=== PATIENT | female | born 1990 | race Caucasian/White ===

== ENCOUNTER 2018-01-13 09:48 | Emergency (ER) | payer OTHER ==
[2018-01-13 10:34] LABS: AMORPHOUS SEDIMENT SMALL (NEGATIVE); APPEARANCE, URINE HAZY (CLEAR); BACTERIA, URINE AUTO NEGATIVE (NEGATIVE); BILIRUBIN, URINE AUTO NEGATIVE (NEGATIVE); BLOOD, URINE BLOOD NEGATIVE (NEGATIVE); COLOR, URINE YELLOW (YELLOW); GLUCOSE, URINE (UA) AUTO NEGATIVE (NEGATIVE); KETONE, URINE AUTO NEGATIVE (NEGATIVE); LEUKOCYTE ESTERASE, URINE AUTO NEGATIVE (NEGATIVE); NITRITE, URINE AUTO NEGATIVE (NEGATIVE); PROTEIN, URINE AUTO NEGATIVE (NEGATIVE); RBC, URINE AUTO 0 /HPF (0-3); SPECIFIC GRAVITY URINE AUTO 1.014 (1.002-1.035); SQUAMOUS EPITHELIAL CELL UR AU 4 /HPF (0-6); UROBILINOGEN, URINE AUTO 0.2 mg/dL (0.0-2.0); WBC, URINE AUTO 0 /HPF (0-3)
[2018-01-13] MEDS: GI COCKTAIL 50ML BTL(HYOSCYAMINE/MAALOX/LIDOCAINE VISCOUS)(1:3:1) PO (10:53)
[2018-01-13] MEDS: NS 1,000 ML IV (10:53)
[2018-01-13] MEDS: ONDANSETRON 4MG/2ML VIAL (J2405) IV (10:53)
[2018-01-13] MEDS: PANTOPRAZOLE 40MG INJ (PROTONIX) (C9113) IV (10:53)
[2018-01-13 10:59] LABS: BASO % 0.5 % (0.0-1.0); EOS # 0.3 10^3/uL (0.0-0.50); EOS % 4.2 % (0.0-3.0); IMMATURE GRANULOCYTE % 0.3 % (0-3.0); LYMPH # 1.6 10^3/uL (1.5-6.5); LYMPH % 25.4 % (24.0-44.0); MEAN CORPUSCULAR HEMOGLOBIN 31.6 pg (27.0-33.0); MEAN CORPUSCULAR HGB CONC 34.1 g/dl (32.0-36.5); MEAN CORPUSCULAR VOLUME 92.6 fl (80.0-96.0); MONO # 0.3 10^3/uL (0.0-0.8); MONO % 4.3 % (0.0-5.0); NEUTROPHILS # 4.1 10^3/uL (1.8-7.7); NEUTROPHILS % 65.3 % (36.0-66.0); PLATELET COUNT, AUTOMATED 304 10^3/uL (150-450); RED BLOOD COUNT 4.43 10^6/uL (4.00-5.40); RED CELL DISTRIBUTION WIDTH 12.7 % (11.5-14.5); WHITE BLOOD COUNT 6.2 10^3/uL (4.0-10.0)
[2018-01-13 11:23] LABS: ALBUMIN 3.7 GM/DL (3.2-5.2); ALBUMIN/GLOBULIN RATIO 1.19 (1.00-1.93); ALKALINE PHOSPHATASE 62 U/L (45-117); ALT/SGPT 19 U/L (12-78); ANION GAP 5 MEQ/L (8-16); AST/SGOT 10 U/L (7-37); BILIRUBIN,TOTAL 0.5 MG/DL (0.2-1.0); BLOOD UREA NITROGEN 11 MG/DL (7-18); CARBON DIOXIDE LEVEL 32 MEQ/L (21-32); CHLORIDE LEVEL 106 MEQ/L (98-107); GLOMERULAR FILTRATION RATE > 60.0 (>60); GLUCOSE, FASTING 104 MG/DL (70-100); LIPASE 114 U/L (73-393); POTASSIUM SERUM 4.1 MEQ/L (3.5-5.1); SODIUM LEVEL 143 MEQ/L (136-145); TOTAL PROTEIN 6.8 GM/DL (6.4-8.2)
[2018-01-13 11:47] LABS: CONTROL LINE HCG INT CTR LINE PRESENT; HCG, SERUM QUALITATIVE NEGATIVE (NEGATIVE)
== END 2018-01-13 12:02 | disposition home or self-care (01) ==
LOC: M ED 09:48
DX: K29.70 Gastritis, unspecified, without bleeding (principal)
CPT/HCPCS: C9113

== ENCOUNTER 2018-05-20 16:35 | Emergency (ER) | payer OTHER ==
[2018-05-20 17:02] LABS: KETONE, URINE AUTO RFX NEGATIVE (NEGATIVE); LEUKOCYTE ESTERASE UR AUTO RFX NEGATIVE (NEGATIVE); NITRITE, URINE AUTO RFX NEGATIVE (NEGATIVE); RBC, URINE AUTO RFX 0 /HPF (0-3); SQUAM EPITHELIAL CELL UR AURFX 0 /HPF (0-6); WBC, URINE AUTO RFX 1 /HPF (0-3)
[2018-05-20 19:23] LABS: HEMATOCRIT 36.6 % (36.0-47.0); HEMOGLOBIN 12.5 g/dl (12.0-15.5); MEAN CORPUSCULAR HEMOGLOBIN 30.9 pg (27.0-33.0); MEAN CORPUSCULAR HGB CONC 34.2 g/dl (32.0-36.5); MEAN CORPUSCULAR VOLUME 90.4 fl (80.0-96.0); PLATELET COUNT, AUTOMATED 275 10^3/uL (150-450); RED BLOOD COUNT 4.05 10^6/uL (4.00-5.40); RED CELL DISTRIBUTION WIDTH 12.4 % (11.5-14.5)
== END 2018-05-20 21:41 | disposition home or self-care (01) ==
LOC: M ED 16:35
DX: O26.892 Other specified pregnancy related conditions, second trimester (principal); R10.2 Pelvic and perineal pain; Z3A.19 19 weeks gestation of pregnancy; Z91.010 Allergy to peanuts; Z79.899 Other long term (current) drug therapy
CPT/HCPCS: 76811

== ENCOUNTER 2018-07-21 22:09 | Emergency (ER) | payer OTHER ==
[~2018-07-21] VITALS: Ht 152.4 cm; Wt 70.0 kg
[~2018-07-21 22:09] MED LIST: FOLI800C PO; PRENTAB55 PO; RANI15TA PO; ZOFR4TAB14 SL
[2018-07-21 22:11] VITALS: BP 117/64
[2018-07-21] MEDS ORDERED: NS 1,000 ML IV ONE (22:30)
[2018-07-21] MEDS ORDERED: METOCLOPRAMIDE INJ 10MG/2ML VIAL (J2765) IV ONE (22:30)
[2018-07-21 22:57] LABS: BASO % 0.1 % (0.0-1.0); EOS % 0.1 % (0.0-3.0); HEMATOCRIT 36.9 % (36.0-47.0); HEMOGLOBIN 12.7 g/dl (12.0-15.5); LYMPH # 0.6 10^3/uL (1.5-6.5); LYMPH % 4.4 % (24.0-44.0); MEAN CORPUSCULAR HEMOGLOBIN 30.8 pg (27.0-33.0); MEAN CORPUSCULAR HGB CONC 34.4 g/dl (32.0-36.5); MEAN CORPUSCULAR VOLUME 89.6 fl (80.0-96.0); MONO # 0.3 10^3/uL (0.0-0.8); MONO % 2.3 % (0.0-5.0); NEUTROPHILS % 92.4 % (36.0-66.0); PLATELET COUNT, AUTOMATED 260 10^3/uL (150-450); RED BLOOD COUNT 4.12 10^6/uL (4.00-5.40); WHITE BLOOD COUNT 14.1 10^3/uL (4.0-10.0)
[2018-07-21 23:17] LABS: AMYLASE 80 U/L (25-115); BLOOD UREA NITROGEN 9 MG/DL (7-18); CALCIUM LEVEL 8.4 MG/DL (8.5-10.1); CARBON DIOXIDE LEVEL 22 MEQ/L (21-32); CHLORIDE LEVEL 105 MEQ/L (98-107); CREATININE FOR GFR 0.44 MG/DL (0.55-1.30); GLOMERULAR FILTRATION RATE > 60.0 (>60); GLUCOSE, FASTING 84 MG/DL (70-100); LIPASE 84 U/L (73-393); POTASSIUM SERUM 3.6 MEQ/L (3.5-5.1); SODIUM LEVEL 138 MEQ/L (136-145)
[2018-07-22] MEDS ORDERED: ONDANSETRON 4MG/2ML VIAL (J2405) IV ONE
[2018-07-22] MEDS ORDERED: ONDA4TAB6 PO (00:16)
[2018-07-22] MEDS ORDERED: MACR100C43 PO (00:16)
== END 2018-07-22 00:37 | disposition home or self-care (01) ==
LOC: M ED 22:09
DX: N39.0 Urinary tract infection, site not specified (principal); R11.2 Nausea with vomiting, unspecified
CPT/HCPCS: 36415; 80048; 81001; 82150; 83690; 85025; 87086; 96361; 96374; 96375; 99284; J2405; J2765

== ENCOUNTER 2018-10-18 02:45 | Inpatient (IN) | payer OTHER ==
[~2018-10-18] VITALS: Ht 160 cm; Wt 75.8 kg
[2018-10-18] VITALS (44 sets, daily range): BP systolic 98–149; BP diastolic 54–79
[~2018-10-18 02:45] MED LIST changes: +MACR100C43 PO; +ONDA4TAB6 PO
[2018-10-18] MEDS ORDERED: LACTATED RINGER'S 1000 ML IV STA (03:25)
[2018-10-18] MEDS ORDERED: BUTORPHANOL 2 MG/ML INJ (J0595) IV ONE (03:30)
[2018-10-18] MEDS ORDERED: PROMETHAZINE INJ 25 MG/ML VIAL (J2550) IV ONE (03:30)
[2018-10-18] MEDS ORDERED: OXYTOCIN DRIP 30 UNITS in APPROPRIATE DILUENT 1 EA IV SCH ×2 (03:30→16:30)
[2018-10-18] MEDS ORDERED: PENICILLIN G POTASSIUM IV 5 MU in D5W MINI-BAG PLUS 100 ML IV STA (03:47)
[2018-10-18 04:12] LABS: HEMATOCRIT 37.8 % (36.0-47.0); HEMOGLOBIN 13.1 g/dl (12.0-15.5); MEAN CORPUSCULAR HEMOGLOBIN 30.8 pg (27.0-33.0); MEAN CORPUSCULAR HGB CONC 34.7 g/dl (32.0-36.5); MEAN CORPUSCULAR VOLUME 88.9 fl (80.0-96.0); PLATELET COUNT, AUTOMATED 300 10^3/uL (150-450); RED BLOOD COUNT 4.25 10^6/uL (4.00-5.40); WHITE BLOOD COUNT 11.7 10^3/uL (4.0-10.0)
--- NOTE | 2018-10-18 04:17 | HPEPDOC ---
Obstetrical History & Physical General Date of Admission Oct 18, 2018 at 03:42 History of Present Illness Ashley is a 28yo with SIUP at 41w0d by lmp c/w 8wk u/s presenting with incre asingly uncomfortable/regular ctx since 21:00 last night. No LOF, no vaginal bleeding, feels movement. 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 Height (inches): 63 Pre- weight (lbs.): 138 Admission Weight (lbs.): 167 Change in Weight (lbs.): 29 Past Medical History Past Obstetrical History : Past Obstetrical History: Primgravida MANAGER PERSONAL History: No pertinent history Past Medical History Medical History benign PMhx Surgical History: [place] teeth Family History Significant Family History: No pertinent family hx Social History Marital Status: Family situation: Spouse/partner home Psychosocial History: No pertinent psych hx * Smoker: non-smoker Alcohol: Denies Drugs: denies Imunizations Tdap status: current Influenza Status: declined Allergies Coded Allergies: Peanut (Verified Allergy, Unknown, 05/20/18) Medications Scheduled Folic Acid (Folic Acid) 800 Mcg Cap, 800 MCG PO DAILY Nitrofurantoin Monohyd/M-Cryst (Macrobid 100 mg Capsule) 100 Mg Cap, 100 MG PO BID [id number]/Iron Fum/Folic/Docusate ( 19 Tablet) 1 Tab Tab, 1 TAB PO DAILY Scheduled PRN Ondansetron (Ondansetron Odt) 4 Mg Tab, 4 MG PO Q6-8HP PRN for nausea/vomiting Physical Examination Physical Examination GENERAL: Alert and oriented times three. ABDOMEN: Gravid and non-tender to touch. FETUS: Is vertex (VTX) by sterile vaginal examination (SVE) EXTREMITIES: no edema BLE SSE: no e/o any HSV lesions Pertinent Laboratoy Data Blood Type: A+ RBC Antibody Screen: Negative HIV: Negative Hepatitis B: Negative Hepatitis C: Unknown Rapid Plasma Reagin: Nonreactive Rubella: Immune Varicella: Immune Chlamydia/Gonorrhea: Negative Group B Streptococcus: Positive Glucose Tolerance Test: 111 Anatomy Ultrasound Ultrasound Date: Jun 03, 2018 Placenta Location: Anterior Normal Anatomy: Yes Placenta Previa: No Steroid Therapy Steroid Therapy: No Vaginal Examination Dilation: 1cm Effacement: 90% Station: -1, 0 Cervical Consistency: Soft Cervical Position: Middle Presentation: Cephalic presentation Assessment Heart Rate (FHR): 120 Variability: Minimal to moderate Accelerations: Positive Decelerations: Other (questionable slight late decel on presentation) Tocometer Contractions: Yes Frequency: regular, every 2-5 min. Duration: greater than 60 seconds Strength: palpated as moderate Assessment/Plan Assessment Ashley is a 28yo with SIUP at 41w0d by lmp c/w 8wk u/s in latent labor with SCE 1/90/-1, ctx q2-5min. Cat II tracing on presentation with min-mod tino, questionable slight late decel, +accels. Vitals wnl, benign exam. Cephalic by S CE. GBS positive. No e/o HSV lesions by SSE. 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 Plan Admit and orient. Program And Research Coordinator and consent. Diet: clear liquids Group B Streptococcus (GBS) positive, PCN per protocol Labs and intravenous (IV) per unit protocol. Counseled on Pitocin and augmentation of labor (IOL)- plan to start pitocin if no cervical change in the next 4 hours Lactated Ringers (LR): Bolus 1000 mL, then at 125 mL/hr. Anticipate normal spontaneous delivery () Candidate for epidural in active labor if desired, ok for 1 dose of IV stadol/phenergan in latent labor if desired MD Star Verma Katrina D MD Oct 18, 2018 03:59
[2018-10-18] MEDS ORDERED: OMEG1CAP16 PO (05:04)
[2018-10-18] MEDS ORDERED: VALT500T PO (05:38)
[2018-10-18] MEDS: LR 1,000 ML IV SCH ×4 (06:50→19:01)
[2018-10-18] MEDS: PENICILLIN G POTASSIUM IV 2.5 MU in APPROPRIATE DILUENT 1 EA IV SCH ×4 (08:08→20:21)
[2018-10-18] MEDS ORDERED: FENTANYL 2MCG/ML ROPIVACAINE 0.2% IN 0.9% NACL 100ML IVBAG As Ordered ONE (13:37)
[2018-10-18] MEDS ORDERED: FENTANYL/ROPIVACAINE/NACL BAG 100 ML EPIDURAL SCH (15:30)
[2018-10-18] MEDS ORDERED: LACTATED RINGER'S 1000 ML IV PRN (15:30)
[2018-10-18] MEDS ORDERED: REFRIGERATOR IV KEYS XX PRN (15:30)
[2018-10-18] MEDS ORDERED: diphenhydrAMINE INJ 50MG/ML VIAL (J1200) IV PRN (15:30)
[2018-10-18] MEDS ORDERED: EPIDURAL/PCA KEYS XX PRN (15:30)
[2018-10-18] MEDS ORDERED: EPIDURAL COMMENT XX SCH (15:30)
[2018-10-18] MEDS ORDERED: ONDANSETRON 4MG/2ML VIAL (J2405) IV PRN ×2 (15:30→23:45)
[2018-10-18] MEDS ORDERED: NALOXONE INJ 0.4 MG/1 ML VIAL (J2310) IV PRN (15:30)
[2018-10-18] MEDS: ePHEDrine SULFATE 25 MG/5 ML(5MG/ML) SYRINGE IV PRN ×3 (16:18→17:11)
[2018-10-18] MEDS ORDERED: RHOGAM 300 MCG (1500 IU) INJ (J2790) IM SCH (23:45)
[2018-10-18] MEDS ORDERED: OXYTOCIN DRIP 30 UNITS in APPROPRIATE DILUENT 1 EA IV ONE (23:45)
[2018-10-18] MEDS ORDERED: LIDOCAINE 1% MDV 20ML VIAL INFIL ONE (23:45)
[2018-10-18] MEDS ORDERED: DIBUCAINE 1% OINTMENT 30GM TOP PRN (23:45)
[2018-10-18] MEDS ORDERED: METHYLERGONOVINE MALEATE 0.2 MG TAB PO PRN (23:45)
[2018-10-18] MEDS ORDERED: DOCUSATE SODIUM 100 MG CAP PO PRN (23:45)
[2018-10-18] MEDS ORDERED: MEASLES,MUMPS,RUBELLA VACCINE INJ (MMR-II) (90707) SC SCH (23:45)
[2018-10-19 01:09] VITALS: BP 103/63
[2018-10-19] MEDS: IBUPROFEN 800 MG TAB PO PRN ×2 (01:11→16:32)
[2018-10-19 06:00] VITALS: BP 92/60
[2018-10-19] MEDS: ACETAMINOPHEN 500 MG TAB PO PRN (08:28)
[2018-10-19] MEDS: PRENATAL VITAMINS CHEWABLE TABLET PO SCH (08:28)
--- NOTE | 2018-10-19 09:19 | IPNPDOC ---
Progress Note Date of Service: Oct 19, 2018 Day#: 1 Progress Note PPD 1 SUBJECT: Ashley is a 28yo [id number] s/p uncomplicated at 41w0d after presenting in latent labor, delivering yesterday evening with a 2mll/stellate laceration and repair (performed by Dr. Carter), doing well day # 1. She has been ambulating, voiding spontaneously without issue and tolerating regular diet. Breast feeding without issue. Reports lochia is like a normal period. No f/c/n/v/CP/SOB. OBJECTIVE: VITAL SIGNS: Within normal limits, normotensive, afebrile. Alert and oriented times three. Abdomen: Fundus firm at U-2. Soft, NTTP. ASSESSMENT: Ashley is a 28yo [id number] s/p uncomplicated at 41w0d after presenting in latent labor, delivering yesterday evening with a 2mll/stellate laceration and repair (performed by Dr. Carter), doing well day # 1. Vitals within normal limits, afebrile, hemodynamically stable with no evidence of infection. PLAN: 1. Routine care 2. Tylenol and Motrin for pain 3. Encourage breast feeding and ambulation. 4. Regular diet 5. Possible discharge home tomorrow if meeting all milestones Dr. Susan Graves MD VS, I&O, 24H, Fishbone Vital Signs/I&O Vital Signs Date Time Temp Pulse Resp B/P (MAP) Pulse Ox O2 Delivery O2 Flow Rate FiO2 10/19/18 06:00 98.3 87 16 92/60 (71) 97 I&O- Last 24 Hours up to 6 AM 10/19/18 06:00 Intake Total 6760 ml Output Total 2025 ml Balance 4735 ml Susan Graves MD Oct 19, 2018 09:19
--- NOTE | 2018-10-19 10:04 | DN ---
DATE: 10/18/2018 PREDELIVERY DIAGNOSIS: 41-weeks labor. POSTDELIVERY DIAGNOSIS: Delivered. PROCEDURE: Spontaneous vaginal delivery. BROOD STATION MANAGER: Dr. Asif Carter. ANESTHESIA: Epidural. ESTIMATED BLOOD LOSS: 300 mL. FINDINGS: A 6 pound 14 ounce, 3110 gram female infant. 9 and 9. DELIVERY SUMMARY: After a 90 minute second stage, the patient had spontaneous delivery of a 6 pound 14 ounce female . 9 and 9 under epidural anesthesia. Nuchal cord times one delivered. The shoulders delivered spontaneously with ease. The infant was handed to the mother. The cord was doubly clamped and cut. The placenta delivered spontaneously and appeared to be intact. The patient received IV pitocin immediately after delivery of the placenta. A second degree peroneal laceration with sulcus tears was repaired with 2-0 Chromic in the usual fashion. Rectal exam revealed non-involvement of the external anal sphincter. Local anesthesia was used for the repair. Sponge and needle counts were correct.
[2018-10-19 20:00] VITALS: BP 110/62
[2018-10-20] MEDS: ACETAMINOPHEN 500 MG TAB PO PRN (03:56)
[2018-10-20 05:53] VITALS: BP 103/56
--- NOTE | 2018-10-20 07:15 | IPNPDOC ---
Progress Note Date of Service: Oct 20, 2018 Day#: 2 Progress Note PPD 2 SUBJECT: Ashley is a 28yo [id number] s/p uncomplicated at 41w0d after presenting in latent labor, delivering on 10/18/18 with a 2mll/stellate laceration and repair (performed by Dr. Carter), doing well day # 2. She has been ambulating, voiding spontaneously without issue and tolerating regular diet. Breast feeding without issue. Reports lochia is like a normal period. No f/c/n/v/CP/SOB. OBJECTIVE: VITAL SIGNS: Within normal limits, normotensive, afebrile. Alert and oriented times three. Abdomen: Fundus firm at U-2. Soft, NTTP. ASSESSMENT: Ashley is a 28yo [id number] s/p uncomplicated at 41w0d after presenting in latent labor, delivering on 10/18/18 with a 2mll/stellate laceration and repair (performed by Dr. Carter), doing well day # 2. Vitals within normal limits, afebrile, hemodynamically stable with no evidence of infection. PLAN: 1. Discharge home 2. Tylenol and Motrin for pain 3. Encourage breast feeding and ambulation. 4. Regular diet 5. Vaginal rest 6 weeks 6. Discussed return precautions 7. Next visit 6wk PP at [facility] Dr. Susan Graves MD VS, I&O, 24H, Fishbone Vital Signs/I&O Vital Signs Date Time Temp Pulse Resp B/P (MAP) Pulse Ox O2 Delivery O2 Flow Rate FiO2 10/20/18 05:53 97.5 75 18 103/56 (72) 10/19/18 20:00 96 Susan Graves MD Oct 20, 2018 07:15
[2018-10-20] MEDS: PRENATAL VITAMINS CHEWABLE TABLET PO SCH (07:46)
[2018-10-20] MEDS ORDERED: MAPA500T2 PO (10:41)
[2018-10-20] MEDS ORDERED: IBUP-1114 PO (10:41)
== END 2018-10-20 13:50 | disposition home or self-care (01) | DRG 807 ==
LOC: M LDO 02:45 → M LDI 03:42 → M OBS 10-19 00:36
PROVIDERS: ADMIT Obstetrics & Gynecology; ATTEND Obstetrics & Gynecology
PROC: 10E0XZZ Delivery of Products of Conception, External Approach (ICD-10-PCS; principal; 2018-10-18)
PROC: 0KQM0ZZ Repair Perineum Muscle, Open Approach (ICD-10-PCS; 2018-10-18)
DX: O48.0 Post-term pregnancy (principal); Z37.0 Single live birth; Z3A.41 41 weeks gestation of pregnancy; Z91.010 Allergy to peanuts; O99.820 Streptococcus B carrier state complicating pregnancy; O70.1 Second degree perineal laceration during delivery

== ENCOUNTER → 2020-08-26 | Outpatient (REF) | payer OTHER ==
[~2020-08-26] MED LIST changes: +IBUP-1114 PO; +MAPA500T2 PO; +OMEG1CAP16 PO; +VALT500T PO
== END ==
LOC: M LAB REF 09:55
PROVIDERS: ATTEND Physician Assistant
DX: Z20.828 Contact with and (suspected) exposure to other viral communicable diseases (principal)